=== PATIENT | female | born 2000 | race Caucasian/White ===

== ENCOUNTER 2022-06-11 09:09 | Outpatient (CLI) | payer BC, SELFPAY ==
[2022-06-12 01:05] LABS: Chlamydia DNA Amplified* NOT DETECTED (No Detected); GC DNA Amplified* NOT DETECTED (No Detected)
== END 2022-06-11 09:10 | disposition home or self-care (01) ==
LOC: LKVREF 09:32
PROVIDERS: PCP Family Medicine; Visit Provider Family Medicine
DX: Z11.3 Encounter for screening for infections with a predominantly sexual mode of transmission (principal)
CPT/HCPCS: 87491; 87591

== ENCOUNTER 2023-04-25 11:26 | Outpatient (CLI) | payer BC, SELFPAY | END 2023-04-25 11:27 | disposition home or self-care (01) | PROVIDERS: PCP Family Medicine; Visit Provider Family Medicine | DX: L40.50 Arthropathic psoriasis, unspecified (principal); Z13.220 Encounter for screening for lipoid disorders; D61.818 Other pancytopenia; Z13.29 Encounter for screening for other suspected endocrine disorder; R63.4 Abnormal weight loss | CPT/HCPCS: 80053; 80061; 84443; 85651 ==

== ENCOUNTER 2024-06-16 12:21 | Outpatient (CLI) | payer BC, SELFPAY | END 2024-06-16 12:22 | disposition home or self-care (01) | PROVIDERS: PCP Family Medicine; Visit Provider Family Medicine | DX: I47.10 Supraventricular tachycardia, unspecified (principal); L40.50 Arthropathic psoriasis, unspecified; Z13.29 Encounter for screening for other suspected endocrine disorder | CPT/HCPCS: 80053; 84443 ==

== ENCOUNTER 2024-07-27 10:37 | Outpatient (CLI) | payer OTHER, SELFPAY | END 2024-07-27 10:38 | disposition home or self-care (01) | LOC: RAD 10:38 | PROVIDERS: PCP Family Medicine; Visit Provider Family Medicine | DX: I47.10 Supraventricular tachycardia, unspecified (principal); R06.09 Other forms of dyspnea | CPT/HCPCS: 93306 ==

== ENCOUNTER 2025-01-14 08:04 | Outpatient (CLI) | payer OTHER, SELFPAY | END 2025-01-14 08:05 | disposition home or self-care (01) | LOC: LKVREF 08:07 | PROVIDERS: PCP Family Medicine; Visit Provider Family Medicine | DX: M25.50 Pain in unspecified joint (principal); Z87.39 Personal history of other diseases of the musculoskeletal system and connective tissue | CPT/HCPCS: 86431 ==